=== PATIENT | female | born 1955 | race Caucasian/White ===

== ENCOUNTER 2020-04-08 08:44 | Day surgery (SDC) | payer BC ==
[~2020-04-08 08:44] MED LIST: Metoclopramide 10 MG/2 ML SDV IV PRN; Sodium Chloride 0.9% 1,000 ML IV SCH
[2020-04-08] MEDS ORDERED: Propofol 1,000 MG/100 ML SDV ONE (13:00)
[2020-04-08 13:56] VITALS: BP 112/61; PULSE 66
--- NOTE | 2020-04-08 14:30 | OR ---
DATE OF OPERATION: 04/08/2020 SURGEON: Joss Phan MD PREOPERATIVE DIAGNOSIS: Screening colonoscopy. POSTOPERATIVE DIAGNOSIS: Screening colonoscopy. PROCEDURE: Colonoscopy with polypectomy. ANESTHESIA: MAC. ESTIMATED BLOOD LOSS: Minimal. COMPLICATIONS: None. INDICATION FOR THE PROCEDURE: The patient is a 64-year-old female here today for screening colonoscopy. She last had a colonoscopy 6 or 7 years ago, did have a poor prep at that point, and unsure of any results from that. She otherwise denies any change in bowel habits since that time. DESCRIPTION OF PROCEDURE: Informed consent was obtained from the patient. The patient was taken to the operating room and placed on the table in left lateral decubitus position. Monitored anesthesia care was administered. Digital rectal exam performed and it was normal. Colonoscope then advanced through the anus directed toward the cecum. Cecum was reached and identified by appendiceal orifice and ileocecal valve. She did have a small semi-pedunculated polyp just adjacent to the appendiceal orifice. This was removed with cold snare polypectomy. Blood loss was minimal. Colonoscope then slowly withdrawn. No areas of ischemia and no inflammation. No additional polyps, no masses. No areas of AV malformation. No diverticula noted on the way out. Rectum was also otherwise unremarkable. Colonoscope then withdrawn. FINDINGS: Cecal polyp. RECOMMENDATIONS: We will follow up on pathology. Otherwise, we would recommend repeat surveillance colonoscopy in 5 years. BOBO/ARASELI /[id number]
== END 2020-04-08 14:10 | disposition home or self-care (01) ==
LOC: LB.SDS 08:44
PROVIDERS: ATTEND Surgery
DX: Z12.11 Encounter for screening for malignant neoplasm of colon (principal); D12.0 Benign neoplasm of cecum; I10 Essential (primary) hypertension; E55.9 Vitamin D deficiency, unspecified; M19.90 Unspecified osteoarthritis, unspecified site; K21.9 Gastro-esophageal reflux disease without esophagitis; M79.7 Fibromyalgia; I49.3 Ventricular premature depolarization; E53.1 Pyridoxine deficiency; Z98.890 Other specified postprocedural states; Z79.899 Other long term (current) drug therapy
CPT/HCPCS: 45385; 88305; J2704; J2765; J7030